=== PATIENT | male | born 1980 | race Two or more races ===

== ENCOUNTER 2020-03-10 09:24 | Emergency (ER) | payer OTHER ==
[~2020-03-10] VITALS: Ht 185.4 cm; Wt 95.3 kg
== END 2020-03-10 10:32 | disposition home or self-care (01) ==
LOC: ER 09:24
DX: S01.02XA Laceration with foreign body of scalp, initial encounter (principal); W26.8XXA Contact with other sharp object(s), not elsewhere classified, initial encounter; Y93.89 Activity, other specified; Y92.69 Other specified industrial and construction area as the place of occurrence of the external cause; Y99.8 Other external cause status